=== PATIENT | male | born 1940 | race Caucasian/White ===

== ENCOUNTER 2018-07-01 02:45 | Inpatient (IN) | payer OTHER ==
[~2018-07-01] VITALS: Ht 185.4 cm; Wt 65.1 kg
[~2018-07-01 02:45] MED LIST: NIFE60TE PO; OMEP-113 PO; PARO20TA13 PO; POTA10TE31 PO; SIMV20TA6 PO
--- NOTE | 2018-07-01 02:45 | NUR ---
BIB EMS FOR ALOC AND AGITATION/AGGRESSION REPORTED BY FAMILY. PT IS A/O TO SELF AND PURPOSE. PT AMBULATED TO BED. COOPERATIVE, NON COMBATIVE BUT AGITATED. MARLA AT 54. OTHER VSS. ER MD AWARE. WILL CONTINUE TO MONITOR.
[2018-07-01 02:56] VITALS: BP 165/78
[2018-07-01] MEDS ORDERED: NACL 0.9% 500 ML IV SCH (03:00)
--- NOTE | 2018-07-01 03:05 | NUR ---
DR. PEREZ EVALUATING AT BEDSIDE.
[2018-07-01 03:35] LABS: BASOPHILS % (AUTO) 0.6 % (0.0-2.0); EOSINOPHILS # (AUTO) 0.2 K/uL (0-0.4); EOSINOPHILS % (AUTO) 3.4 % (0.0-4.0); HEMATOCRIT 41.8 % (36-52); HEMOGLOBIN 13.7 g/dL (12.0-18.0); LYMPHOCYTES # (AUTO) 1.7 K/uL (2.0-11.5); LYMPHOCYTES % (AUTO) 29.8 % (20.5-51.1); MEAN CORPUSCULAR HEMOGLOBIN 31 pg (27-31); MEAN CORPUSCULAR HGB CONC 33 g/dL (33-37); MEAN CORPUSCULAR VOLUME 92.7 fL (80-94); MONOCYTES # (AUTO) 0.4 K/uL (0.8-1.0); MONOCYTES % (AUTO) 7.3 % (1.7-9.3); NEUTROPHILS # (AUTO) 3.4 K/uL (1.8-7.7); NEUTROPHILS % (AUTO) 58.9 % (42.2-75.2); PLATELET COUNT (AUTO) 104 K/uL (140-450); RED CELL DISTRIBUTION WIDTH 14.4 % (11.6-13.7); WHITE BLOOD COUNT (AUTO) 5.8 K/uL (4.8-10.8)
[2018-07-01 03:36] LABS: APPEARANCE,URINE CLEAR (CLEAR); BILIRUBIN,URINE NEGATIVE (NEGATIVE); BLOOD, URINE NEGATIVE (NEGATIVE); COLOR,URINE YELLOW (YELLOW); LEUKOCYTE ESTERASE ,URINE NEGATIVE (NEGATIVE); NITRITE, URINE NEGATIVE (NEGATIVE); PH,URINE 7.5 (5.0-9.0); UGLUCOSE NEGATIVE (NEGATIVE)
--- NOTE | 2018-07-01 03:41 | NUR ---
EKG PERFORMED AT BEDSIDE
[2018-07-01 04:01] LABS: ALBUMIN 4.1 g/dL (3.4-5.0); ANION GAP 11.1 (8-16); ASPARTATE AMINOTRANSFERASE 28 U/L (15-37); CARBON DIOXIDE 31.2 mmol/L (21-32); CHLORIDE 105 mmol/L (98-107); CREATININE 1.1 mg/dL (0.7-1.3); GLUCOSE 108 mg/dL (74-106); POTASSIUM 3.3 mmol/L (3.5-5.1); SODIUM SERUM 144 mmol/L (136-145); TOTAL BILIRUBIN 0.5 mg/dL (0.0-1.0); UREA NITROGEN, BLOOD 24 mg/dL (7-18)
[2018-07-01] MEDS ORDERED: NACL 0.9% 2,000 ML IV ONE (04:35)
[2018-07-01] MEDS ORDERED: ASPIRIN 81 MG TAB.CHEW PO ONE (04:35)
[2018-07-01] MEDS ORDERED: LORazepam 2 MG/ML VIAL IVP ONE (05:20)
[2018-07-01] MEDS ORDERED: hePARIN / DEXT 5% PREMIX 250 ML IV SCH ×2 (05:45→08:00)
[2018-07-01] MEDS ORDERED: HYDROcodone/APAP 7.5/325 MG 1 TAB PO PRN (05:45)
[2018-07-01] MEDS ORDERED: NITROGLYCERIN 0.4 MG TAB SL PRN (05:45)
[2018-07-01] MEDS ORDERED: ONDANSETRON 4 MG/2 ML VIAL IM/IVP PRN (05:45)
[2018-07-01] MEDS ORDERED: DOCUSATE SODIUM 100 MG GELCAP PO PRN (05:45)
[2018-07-01] MEDS ORDERED: MORPHINE SULFATE 2 MG/ML SYR IVP PRN (05:45)
[2018-07-01] MEDS ORDERED: HEPARIN PER PHARMACY MC PRN (05:45)
[2018-07-01] MEDS ORDERED: ACETAMINOPHEN 325 MG TAB PO PRN (05:45)
--- NOTE | 2018-07-01 06:29 | NUR ---
Patient will be admitted to care of DR Hackett. Admited to TELE. Will go to room 117. Belongings list completed. Report to ANA Wadsworth.
--- NOTE | 2018-07-01 06:30 | NUR ---
RECEIVED REPORT FROM MANAGER ORACLE DATABASEAAN HERNANDEZ FOR CONTINUITY OF CARE. PT IS A/OX1, CONFUSED. ON ROOM AIR. 20G IV TO LEFT AC. GAIT IS IMPAIRED AND PT WAS CHANGED INTO YELLOW GOWN. BED ALARM ON.
[2018-07-01] MEDS ORDERED: POTASSIUM CHLORIDE 10 MEQ TABER PO SCH (07:00)
[2018-07-01] MEDS: NACL 0.9% 1,000 ML IV SCH ×2 (07:00→16:25)
--- NOTE | 2018-07-01 07:18 | NUR ---
ENDORSED PT TO DAY SHIFT ANA CAO FOR CONTINUITY OF CARE. PT STABLE.
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
[2018-07-01] MEDS ORDERED: HALOPERIDOL IM 5 MG/ML VIAL IM SCH ×3 (07:40→15:00)
[2018-07-01 07:51] LABS: CHOL/HDL RATIO 1.7 (1-4.5); MAGNESIUM 2.1 mg/dL (1.8-2.4); THYROID STIMULATING HORMONE 4.19 uIU/mL (0.34-3.74)
[2018-07-01 08:00] VITALS: BP 140/79
--- NOTE | 2018-07-01 08:28 | NUR ---
PATIENT HAS BEEN SCREENED AND CATEGORIZED HIGH NUTRITION RISK. PATIENT WILL BE SEEN WITHIN 1-2 DAYS OF ADMISSION. 07/01/18-07/02/[address]
[2018-07-01] MEDS: ASPIRIN 81 MG TAB.CHEW PO SCH (09:00)
[2018-07-01] MEDS: LISINOPRIL 5 MG TAB PO SCH (09:00)
[2018-07-01] MEDS ORDERED: METOPROLOL 25 MG TAB PO SCH (09:00)
[2018-07-01] MEDS ORDERED: ATORVASTATIN 20 MG TAB PO SCH (09:00)
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
--- NOTE | 2018-07-01 09:36 | NUR ---
PT STANDING UP AND PUSHING STAFF. UNABLE TO REORIENT AT THIS TIME. AWARE. HALDOL IM GIVEN. PT CONVINCED TO SIT BACK IN CHAIR. TELE MONITOR IN PLACE. WILL CONTINUE TO MONITOR.
--- NOTE | 2018-07-01 10:00 | NUR ---
PT BEING WHEELED AROUND UNIT. PT APPEARS CALM AT THIS TIME. PT'S IV SELF REMOVED TIP INTACT. MADE AWARE OF PATIENT'S HEART RATE IN THE 40'S AFIB. PT APPEARS ASYMPTOMATIC. WILL CONTINUE TO MONITOR.
--- NOTE | 2018-07-01 10:36 | NUR ---
Director Customer Note: I called patient's Rashida Craft and patient's son Ace Craft , neither answered, left messages. I told charge nurse Dinora to please call me if patient's family visits patient or calls nurses' station.
[2018-07-01] MEDS ORDERED: NIFE30TE8 PO (11:39)
[2018-07-01] MEDS ORDERED: CARV3.12 PO (11:39)
[2018-07-01] MEDS ORDERED: DONE5TAB6 PO (11:40)
[2018-07-01 12:00] VITALS: BP 125/65
[2018-07-01] MEDS ORDERED: DONEPEZIL 10 MG TAB PO SCH (12:00)
[2018-07-01] MEDS ORDERED: NIFEdipine 30 MG TABER PO SCH (12:00)
--- NOTE | 2018-07-01 12:03 | NUR ---
PT SITTING IN WHEELCHAIR WITH SITTER AT BEDSIDE. NO S/S OF ACUTE DISTRESS. PT DENIES PAIN. PT IS CALM. WILL CONTINUE TO MONITOR.
[2018-07-01] MEDS ORDERED: QUEtiapine FUMARATE 25 MG TAB PO SCH ×2 (12:45→21:00)
[2018-07-01] MEDS ORDERED: LOVENOX 1MG/KG Q12H SUBQ SCH (14:55)
--- NOTE | 2018-07-01 15:27 | NUR ---
07/01/18 RD INITIAL ASSESSMENT COMPLETED PLEASE REFER TO NUTRITION ASSESSMENT UNDER CARE ACTIVITY FOR ESTIMATED NUTRITIONAL NEEDS. 1. CONTINUE CARDIAC DIET TOLERATED 2. RD PROVIDED A CARDIAC NUTRITION EDUCATION HANDOUT FOR PATIENT AND FAMILY 3. RECOMMEND ENSURE QD 4. RD TO FOLLOW-UP 3-5 DAYS, MODERATE RISK AVIS KIRKPATRICK, RD
[2018-07-01 16:00] VITALS: BP 116/68
--- NOTE | 2018-07-01 16:44 | NUR ---
PT SLEEPING IN BED. NO S/S OF ACUTE DISTRESS. SITTER AT BEDSIDE. WILL CONTINUE TO MONITOR.
[2018-07-01] MEDS ORDERED: SIMVASTATIN 20 MG PO SCH (17:00)
--- NOTE | 2018-07-01 19:34 | NUR ---
ENDORSED PLAN OF CARE TO NIGHT RN.
--- NOTE | 2018-07-01 19:35 | NUR ---
RECEIVED REPORT FROM ANA CAO FOR CONTINUITY OF CARE. PT IS A/OX1, ON ROOM AIR. PT ABLE TO MAKE NEEDS KNOWN, AND ABLE TO FOLLOW COMMANDS, BUT IS SEVERELY CONFUSED. PT AMBULATES WITH VERY UNSTEADY GAIT, BU THE REFUSES TO SIT DOWN AND APPARENTLY GETS VIOLENT IF NOT ALLOWED TO WALK AROUND. SKIN IS INTACT. PT HAS A 22G IV TO LEFT AC, ASYMPTOMATIC AND INTACT. SBP SLIGHTLY ELEVATED BUT PT WILL GET SCHEDULED COREG SHORTLY, OTHER VITAL SIGNS WITHIN NORMAL LIMITS. PT STABLE, DENIES PAIN, NO SIGNS OF DISTRESS NOTED AT THIS TIME. PT POSITIONED FOR COMFORT. BED IN LOWEST POSITION, BED ALARM ON. WILL CONTINUE TO MONITOR.
--- NOTE | 2018-07-01 19:55 | NUR ---
PT INSISTED ON WALKING AROUND ALMOST STRAIGHT AWAY BUT AGREED TO ALLOW ME TO HOLD HIM TO HELP STEADY HIS GAIT.
[2018-07-01 20:00] VITALS: BP 161/77
[2018-07-01] MEDS: CARVEDILOL 3.125 MG TAB PO SCH (20:40)
[2018-07-01] MEDS: QUEtiapine FUMARATE 25 MG TAB PO SCH (20:40)
[2018-07-01] MEDS: ENOXAPARIN 80 MG/0.8 ML SYR SUBQ SCH (20:44)
--- NOTE | 2018-07-01 20:45 | NUR ---
ADMINISTERED SCHEDULED MEDICATIONS, PT TOLERATED WELL.
[2018-07-01] MEDS ORDERED: SIMVASTATIN 20 MG TAB PO SCH (21:00)
--- NOTE | 2018-07-01 21:00 | NUR ---
PT SAT FOR A MINUTE AFTER MEDICATION ADMINISTRATION, BUT GOT UP TO WALK ALMOST IMMEDIATELY. CURRENTLY TAKING PT AROUND UNIT IN WHEELCHAIR.
--- NOTE | 2018-07-01 21:58 | NUR ---
PT AGREED TO GO BACK IN ROOM AND LAY DOWN BECAUSE HE IS COLD AND TIRED. PT STATES HE'LL LIE DOWN FOR ONLY A BIT BECAUSE HE HAS SO MANY THINGS TO DO. REORIENTED PT AND TOLD HIM I'D STAY IN THE ROOM WITH HIM AND HE AGREED TO REST FOR A BIT.
--- NOTE | 2018-07-01 22:44 | NUR ---
PT IS RESTING NOW, STABLE, NO SIGNS OF DISTRESS NOTED AT THIS TIME. BED IN LOWEST POSITION, BED ALARM ON. WILL CONTINUE TO MONITOR.
[2018-07-02] VITALS: BP 155/78
--- NOTE | 2018-07-02 | NUR ---
VITAL SIGNS WITHIN NORMAL LIMITS. PT STABLE, DENIES PAIN, NO SIGNS OF DISTRESS NOTED AT THIS TIME. PT POSITIONED FOR COMFORT. BED IN LOWEST POSITION, BED ALARM ON. WILL CONTINUE TO MONITOR.
--- NOTE | 2018-07-02 02:15 | NUR ---
PT WOKE UP AND STARTED WALKING WITH VERY UNSTEADY GAIT. WHEN I TRIED TO HELP HIM HE STARTED SWINGING HIS ARMS AT ME, MICA MINER TRIED TO GET HIM TO SIT IN WHEELCHAIR AND HE REFUSED. SECURITY WAS CALLED WHEN HE STARTED GETTING AGITATED AND HE KEPT WALKING, ALMOST FALLING FORWARD SEVERAL TIMES, BUT I WAS BEHIND HIM TRYING TO HELP HIM STEADY HIS GAIT. HE REACHED THE END OF THE HALLWAY AND STOOD AGAINST THE WALL AND I NOTICED HIS LEFT EAR WAS BLEEDING. I LET DR SHARMA KNOW AND HE SAID HE WOULD GO CHECK HIS EAR. MEANWHILE CONSTRUCTION ACCOUNTANT JEYSON TRIED TO GET HIM TO SIT AND/OR GO BACK TO HIS ROOM. PT KEPT REFUSING AND THREATENED TO "GRAB A STICK AND CRACK OUR SKULLS OPEN IF WE TOUCHED HIM." HE SAID WE WERE "IDIOTS" BECAUSE WE KEPT TRYING TO CONVINCE HIM TO SIT AND HE DIDN'T WANT TO, WE TOLD HIM WE DIDN'T WANT HIM TO FALL AND HE STAYED QUIET. AFTER A FEW MINUTES PT STARTED GETTING OFF WALL AGAIN AND STARTED TRYING TO WALK HE SAID I'M GOING BACK TO BED. PT ALLOWED FOR ME TO HELP HIM GET TO HIS BED. ONCE IN BED DR SHARMA EXAMINED HIS EAR AND SAID IT LOOKED LIKE PT SCRATCHED AND THAT WAS WERE BLOOD WAS COMING FROM. CLEANED PT'S EAR, PT LAID DOWN AND I COVERED HIM WITH A BLANKET.
[2018-07-02] MEDS: NACL 0.9% 1,000 ML IV SCH (02:46)
[2018-07-02 04:00] VITALS: BP 151/74
--- NOTE | 2018-07-02 04:00 | NUR ---
BP SLIGHTLY ELEVATED BUT TRENDING DOWN. OTHER VITAL SIGNS WITHIN NORMAL LIMITS. PT STABLE, FLACC 0, NO SIGNS OF DISTRESS NOTED AT THIS TIME. PT POSITIONED FOR COMFORT. BED IN LOWEST POSITION, BED ALARM ON. WILL CONTINUE TO MONITOR.
[2018-07-02 06:23] LABS: CARBON DIOXIDE 30.8 mmol/L (21-32); CHLORIDE 109 mmol/L (98-107); GLUCOSE 90 mg/dL (74-106); SODIUM SERUM 146 mmol/L (136-145); UREA NITROGEN, BLOOD 17 mg/dL (7-18)
--- NOTE | 2018-07-02 06:33 | NUR ---
PT STABLE, FLACC 0, NO SIGNS OF DISTRESS NOTED AT THIS TIME. PT POSITIONED FOR COMFORT. BED IN LOWEST POSITION, BED ALARM ON. WILL CONTINUE TO MONITOR.
[2018-07-02 06:39] LABS: BASOPHILS % (AUTO) 0.5 % (0.0-2.0); EOSINOPHILS # (AUTO) 0.2 K/uL (0-0.4); EOSINOPHILS % (AUTO) 3.7 % (0.0-4.0); HEMATOCRIT 38.8 % (36-52); HEMOGLOBIN 12.8 g/dL (12.0-18.0); LYMPHOCYTES # (AUTO) 1.8 K/uL (2.0-11.5); LYMPHOCYTES % (AUTO) 31.1 % (20.5-51.1); MEAN CORPUSCULAR HEMOGLOBIN 30 pg (27-31); MEAN CORPUSCULAR HGB CONC 33 g/dL (33-37); MEAN CORPUSCULAR VOLUME 91.8 fL (80-94); MONOCYTES # (AUTO) 0.6 K/uL (0.8-1.0); MONOCYTES % (AUTO) 10.4 % (1.7-9.3); NEUTROPHILS # (AUTO) 3.1 K/uL (1.8-7.7); NEUTROPHILS % (AUTO) 54.3 % (42.2-75.2); PLATELET COUNT (AUTO) 97 K/uL (140-450); RED BLOOD CELL COUNT(AUTO) 4.23 MIL/uL (4.20-6.10); RED CELL DISTRIBUTION WIDTH 14.1 % (11.6-13.7); WHITE BLOOD COUNT (AUTO) 5.7 K/uL (4.8-10.8)
[2018-07-02 06:41] LABS: POTASSIUM 2.8 mmol/L (3.5-5.1)
[2018-07-02] MEDS ORDERED: POTASSIUM CHLORIDE 10 MEQ TABER PO SCH (07:00)
--- NOTE | 2018-07-02 07:20 | NUR ---
ENDORSED PT TO DAY SHIFT ANA PATEL AT BEDSIDE FOR CONTINUITY OF CARE. PT IN STABLE CONDITION.
--- NOTE | 2018-07-02 07:21 | NUR ---
RECEIVED BEDSIDE REPORT FROM COMPRESSOR STATION CHIEF ENGINEER NURSE. PATIENT SLEEPING AT THIS TIME. STATED PATIENT IS COMBATIVE, CONFUSED, AND FALL RISK. ON TELE MONITOR AND STANDARD PRECAUTIONS IN PLACE. L EAR SCAB, DOCTOR AWARE. PATIENT INCONTINENT. FALL RISK PROTOCOL IN PLACE. IV ON L AC 22 G, ASYMPTOMATIC, PATENT AND INTACT. BED IN LOW POSITION, CALL LIGHT WITHIN REACH, SIDE RAILS X2 UP. WILL CONTINUE TO MONITOR.
[2018-07-02 08:00] VITALS: BP 144/75
[2018-07-02] MEDS ORDERED: POTASSIUM CHLORIDE 40 MEQ, LIDOCAINE 1% 25 MG in NACL 0.9% 250 ML IV SCH (08:00)
[2018-07-02] MEDS ORDERED: NIFEdipine 30 MG TABER PO SCH (09:00)
[2018-07-02] MEDS: LISINOPRIL 5 MG TAB PO SCH (09:00)
[2018-07-02] MEDS: CARVEDILOL 3.125 MG TAB PO SCH (09:00)
[2018-07-02] MEDS: QUEtiapine FUMARATE 25 MG TAB PO SCH (09:00)
[2018-07-02] MEDS: ENOXAPARIN 80 MG/0.8 ML SYR SUBQ SCH (09:00)
[2018-07-02] MEDS: ASPIRIN 81 MG TAB.CHEW PO SCH (09:00)
[2018-07-02] MEDS ORDERED: DONEPEZIL 10 MG TAB PO SCH (09:00)
--- NOTE | 2018-07-02 09:19 | NUR ---
ADMINISTERED K RIDER FOR K 2.8. PATIENT TOLERATED WELL. WILL CONTINUE TO MONITOR.
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
--- NOTE | 2018-07-02 11:32 | NUR ---
CHANGED PATIENTS SOILED PADS. SECURITY AT BEDSIDE. PATIENT NOW BACK TO SLEEP. WILL CONTINUE TO MONITOR.
--- NOTE | 2018-07-02 11:34 | NUR ---
RECEIVED ORDER FOR SNF FOR P.T., [facility]EMENT[facility] UNIT. I CALLED [facility] AND SPOKE WITH KARINA AND SHE SAID THE ORDER SHOULD BE FAXED TO [facility]. [phone]. PHONE [phone]
[2018-07-02 12:00] VITALS: BP 151/84
--- NOTE | 2018-07-02 13:21 | NUR ---
PATIENT LAYING IN BED. NO DISTRESS NOTED, ON ROOM AIR. WILL CONTINUE TO MONITOR.
[2018-07-02] MEDS ORDERED: ASPI-1718 PO (13:55)
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
[2018-07-02 16:00] VITALS: BP 165/87
--- NOTE | 2018-07-02 16:33 | NUR ---
I CALLED [facility] AND SPOKE WITH RAMO AFTER HOURS PERSON. [phone]. SHE SAID THAT THE PATIENT WAS ACCEPTED AT [facility], BUT THEY ARE WAITING FOR AN FAM. RAMO SAID IF SHE GETS THE FAM SHE WILL SEND IT TO THE SNF AND WILL BE ABLE TO GET THE ROOM NUMBER. I GAVE HER THE PHONE NUMBER TO THE FLOOR TO CALL IF SHE GETS A BED. [facility] [phone], PHONE FAX [phone] I FAXED THE P.T. NOTES TO [facility], FAX [phone].
--- NOTE | 2018-07-02 17:00 | NUR ---
RECEIVED A CALL FROM DAMARIS REGARDING PATIENT ACCEPTED TO [facility] (LOCKED FACILITY) IN ROOM T11. GAVE ME THE NUMBER TO GIVE REPORT TO: [phone]. SHE SAID PICKUP TIME IS IN 90 MINUTES FROM [facility]. CHARGE NURSE AWARE.
--- NOTE | 2018-07-02 17:22 | NUR ---
REPORT GIVEN TO [facility] FROM [facility], WHICH IS A LOCKED FACILITY, PHONE NUMBER [phone]. PATIENT WILL BE GOING TO ROOM T11. ANSWERED ALL QUESTIONS AND CONCERNS. NURSE AWARE OF PICKUP TIME AROUND 6:30 PM TODAY BY [facility].
[2018-07-02 18:46] LABS: ANION GAP 3.6 (8-16); CARBON DIOXIDE 32.5 mmol/L (21-32); CHLORIDE 107 mmol/L (98-107); CREATININE 1.1 mg/dL (0.7-1.3); GLUCOSE 91 mg/dL (74-106); POTASSIUM 3.1 mmol/L (3.5-5.1); SODIUM SERUM 140 mmol/L (136-145); UREA NITROGEN, BLOOD 16 mg/dL (7-18)
--- NOTE | 2018-07-02 18:55 | NUR ---
GOT CALL FROM AKILAH PAULINO [facility]. STATED PATIENT WILL BE PICKED UP IN 60 MINUTES. WILL ENDORSE TO TEST FIXTURE DESIGNER NURSE.
--- NOTE | 2018-07-02 19:25 | NUR ---
GAVE REPORT TO [facility]. PATIENT UNABLE TO SIGN PAPERWORK. GAVE FACE SHEET AND COPY OF PATIENTS DISCHARGE PAPERS IN FOLDER. REMOVED WRIST BAND AND IV. IV TIP INTACT. ANSWERED ALL QUESTIONS AND CONCERNS. PATIENT REFUSED PNA AND FLU VACCINE. PATIENT IN STABLE CONDITION.
[2018-07-02] MEDS ORDERED: QUEtiapine FUMARATE 25 MG TAB PO SCH (21:00)
== END 2018-07-02 19:25 | DRG 281 ==
LOC: MED 02:45 → MTU 05:44
PROVIDERS: ADMIT General Practice; ATTEND General Practice
DX: I21.A1 Myocardial infarction type 2 (principal); E87.2 Acidosis; F02.81 Dementia in other diseases classified elsewhere, unspecified severity, with behavioral disturbance; I42.9 Cardiomyopathy, unspecified; G30.9 Alzheimer's disease, unspecified; F29 Unspecified psychosis not due to a substance or known physiological condition; J45.909 Unspecified asthma, uncomplicated; I10 Essential (primary) hypertension; G89.29 Other chronic pain; I25.10 Atherosclerotic heart disease of native coronary artery without angina pectoris; E87.6 Hypokalemia; E02 Subclinical iodine-deficiency hypothyroidism; E86.0 Dehydration
CPT/HCPCS: 36415; 71045; 80048; 80053; 81003; 82150; 83036; 83605; 83690; 83735; 83880; 84100; 84439; 84443; 84484; 85025; 85610; 85730; 87040; 87086; 93005; 96361; 96374; 97116; 99285; J1630; J1650; J2001; J2060; J2270; J3480; J7030; Q0092

== ENCOUNTER 2018-08-14 14:23 | Inpatient (IN) | payer OTHER ==
[~2018-08-14] VITALS: Ht 188 cm; Wt 68.0 kg
[~2018-08-14 14:23] MED LIST changes: +ASPI-1718 PO; +CARV3.12 PO; +DONE5TAB6 PO; +NIFE30TE8 PO; -NIFE60TE PO; -OMEP-113 PO; -PARO20TA13 PO; -POTA10TE31 PO
--- NOTE | 2018-08-14 14:23 | NUR ---
Patient BIBA ACLS, transferred to bed 10. RN evaluating patient at bedside.
[2018-08-14 14:25] VITALS: BP 159/77
--- NOTE | 2018-08-14 14:35 | NUR ---
PT BIB [facility] TO ER BED 10
--- NOTE | 2018-08-14 14:57 | NUR ---
BIBA WITH C/O FALL AT HOME, PER EMS FOUND ON THE FLOOR BY PT'S FAMILY MEMBERS, AMS THEN USUAL, DENIES PAIN, OR ANY INJURY. MEDHX: ALZHEIMER'S, HTN, CARDIAC DISEASE.
[2018-08-14 15:09] LABS: BASOPHILS % (AUTO) 0.3 % (0.0-2.0); EOSINOPHILS # (AUTO) 0.1 K/uL (0-0.4); EOSINOPHILS % (AUTO) 0.9 % (0.0-4.0); HEMATOCRIT 38.4 % (36-52); HEMOGLOBIN 12.9 g/dL (12.0-18.0); LYMPHOCYTES # (AUTO) 1.7 K/uL (2.0-11.5); LYMPHOCYTES % (AUTO) 20.7 % (20.5-51.1); MEAN CORPUSCULAR HEMOGLOBIN 30 pg (27-31); MEAN CORPUSCULAR HGB CONC 34 g/dL (33-37); MEAN CORPUSCULAR VOLUME 90.8 fL (80-94); MONOCYTES # (AUTO) 0.9 K/uL (0.8-1.0); MONOCYTES % (AUTO) 10.8 % (1.7-9.3); NEUTROPHILS # (AUTO) 5.6 K/uL (1.8-7.7); NEUTROPHILS % (AUTO) 67.3 % (42.2-75.2); PLATELET COUNT (AUTO) 142 K/uL (140-450); RED BLOOD CELL COUNT(AUTO) 4.23 MIL/uL (4.20-6.10); RED CELL DISTRIBUTION WIDTH 13.9 % (11.6-13.7); WHITE BLOOD COUNT (AUTO) 8.4 K/uL (4.8-10.8)
[2018-08-14 15:19] LABS: ALBUMIN 3.2 g/dL (3.4-5.0); ANION GAP 10.8 (8-16); ASPARTATE AMINOTRANSFERASE 25 U/L (15-37); CARBON DIOXIDE 30.4 mmol/L (21-32); CHLORIDE 102 mmol/L (98-107); CREATININE 1.4 mg/dL (0.7-1.3); GLUCOSE 105 mg/dL (74-106); POTASSIUM 3.2 mmol/L (3.5-5.1); SODIUM SERUM 140 mmol/L (136-145); TOTAL BILIRUBIN 1.3 mg/dL (0.0-1.0); UREA NITROGEN, BLOOD 35 mg/dL (7-18)
--- NOTE | 2018-08-14 15:32 | NUR ---
XRAY AT BEDSIDE
--- NOTE | 2018-08-14 15:51 | NUR ---
# 14 FR Urinary catheter inserted utilizing sterile technique. Immediate return of 150 ml DARK URINE urine noted. Urine sample collected and sent to lab. Pt tolerated procedure WELL.
--- NOTE | 2018-08-14 15:53 | NUR ---
PT GOING TO RADIOLOGY AT THIS TIME
[2018-08-14 16:17] LABS: APPEARANCE,URINE CLEAR (CLEAR); BILIRUBIN,URINE NEGATIVE (NEGATIVE); BLOOD, URINE NEGATIVE (NEGATIVE); COLOR,URINE YELLOW (YELLOW); LEUKOCYTE ESTERASE ,URINE NEGATIVE (NEGATIVE); NITRITE, URINE NEGATIVE (NEGATIVE); UGLUCOSE NEGATIVE (NEGATIVE)
--- NOTE | 2018-08-14 17:06 | NUR ---
PT TOOK STOOD UP AND URINATED ON FLOOR. PT WAS PUT BACK IN BED AND RECONNECTED TO MONITOR. PT SON IS NOW AT BEDSIDE AND CURTAINS ARE OPEN TO KEEP AN EYE ON PT. PT AAOX2, COOPERATIVE, DENIES PAIN AT THIS TIME. VSS
[2018-08-14] MEDS ORDERED: LACTATED RINGERS 1,000 ML IV ONE (17:30)
--- NOTE | 2018-08-14 18:26 | NUR ---
PT PULLED OUT IV, LR STOPPED, CATHETER WAS INTACT, BLEEDING STOPPED WITH 2X2 GAUZE AND TAPE.
[2018-08-14 18:30] LABS: ACETONE, SERUM NEGATIVE (NEGATIVE)
[2018-08-14 18:40] LABS: MAGNESIUM 2.2 mg/dL (1.8-2.4)
--- NOTE | 2018-08-14 19:00 | NUR ---
PT PULLED OUT IV. LR STOPPED. BLEEDING STOPPED WITH GAUZE AND TAPE.
--- NOTE | 2018-08-14 19:10 | NUR ---
ASSUMED CARE OF PATIENT. PT FOUND LYING IN [facility] BED. PT DOES NOT HAVE IV ACCESS AT THIS TIME. PT IS PENDING TRANSFER TO [facility].
--- NOTE | 2018-08-14 19:40 | NUR ---
PT NOTED TRYING TO GET OUT OF BED. WAS ASSISTED WITH SECOND RIDE FARE COLLECTOR TO ASSIST PATIENT BACK INTO BED. PT PLACED IN POSITION OF COMFORT.
--- NOTE | 2018-08-14 20:56 | NUR ---
FOOD TRAY ORDERED FOR PATIENT. PT EATING, TOLERATING WELL.
[2018-08-14] MEDS: NACL 0.9% 1,000 ML IV SCH (21:11)
[2018-08-14] MEDS ORDERED: ACETAMINOPHEN 325 MG TAB PO PRN (21:15)
[2018-08-14] MEDS ORDERED: DOCUSATE SODIUM 100 MG GELCAP PO PRN (21:15)
[2018-08-14] MEDS ORDERED: ONDANSETRON 4 MG/2 ML VIAL IM/IVP PRN (21:15)
[2018-08-14] MEDS ORDERED: HYDROcodone/APAP 5/325 MG 1 TAB TAB PO PRN (21:15)
[2018-08-14 21:40] VITALS: BP 179/84
--- NOTE | 2018-08-14 21:40 | NUR ---
PATIENT ARRIVED TO UNIT VIA GURNEY, PATIENT AAOX 1 TO PERSON, UNABLE TO MAKE NEED KNOWN, TRYING TO GET OUT OF BED, IV IN LEFT AC SL, PATIENT TRYING TO PULL OUT IV, WRAPPED AND SECURED, NOTED SACRAL AND LEFT KNEE REDNESS, LEFT TOE BLEEDING, BP 179/80 HR 64. WILL NOTIFY FOR ORDERS. MRSA SCREEN COLLECTED AND SENT TO LAB, ASKED DR PATEL IF NEED NS AND HEPARIN DRIP AT SAME TIME AND NEED TO START NEW IV? STATED OKAY TO HOLD NS FOR NOW AND GIVE HEPARIN. BED ALARM ON, WILL PROVIDE FREQ CHECKS
[2018-08-14 21:42] LABS: BARBITURATE, URINE NEG. ng/ml (NEG <=200); BENZODIAZEPINE, URINE NEG. ng/mL (NEG <=200); CANNABINOID, URINE NEG. ng/mL (NEG <=50); COCAINE, URINE NEG. ng/mL (NEG <=300); OPIATE, URINE NEG. ng/mL (NEG <=2000); PHENCYCLIDINE SCREEN,URINE NEG. ng/mL (NEG <=25)
--- NOTE | 2018-08-14 21:43 | NUR ---
Admited to Tele. Will go to room 110-A. Belongings list completed. Report to Summer RN.
[2018-08-14 21:45] LABS: PROTHROMBIN TIME 11.6 secs (10.8-13.4)
[2018-08-14 21:54] LABS: CHOL/HDL RATIO 3.2 (1-4.5); FREE T4 (FREE THYROXINE) 1.39 ng/dL (0.76-1.46); PHOSPHORUS 3.4 mg/dL (2.5-4.9); THYROID STIMULATING HORMONE 1.44 uIU/mL (0.34-3.74)
--- NOTE | 2018-08-14 22:00 | NUR ---
WILL START WITH SITTER NEEDED FOR SAFETY PRECAUTIONS.
--- NOTE | 2018-08-14 22:20 | NUR ---
PATIENT UNABLE TO ANSWER ADMISSION QUESTIONS EVEN WITH NETWORK SUPPORT SPECIALIST. WILL CALL FAMILY FOR ADMISSION DATA.
[2018-08-14] MEDS ORDERED: hePARIN / DEXT 5% PREMIX 250 ML IV SCH (22:30)
--- NOTE | 2018-08-14 22:30 | NUR ---
NOTIFIED DR PATEL BP 179/80 HR 64, WOUND ON LEFT TOE, REDNESS ON LEFT KNEE AND SACRAL AREA.
--- NOTE | 2018-08-14 22:47 | NUR ---
CALLED ISRAEL ASKED IF SHE CAN BRING MEDICATIONS FOR MED RECONCILIATION. SHE SAID OKAY, DR PATEL AWARE.
[2018-08-14] MEDS ORDERED: NITROGLYCERIN 0.4 MG TAB SL PRN (22:55)
[2018-08-14] MEDS ORDERED: hydrALAZINE 20 MG/ML VIAL IVP PRN (23:00)
[2018-08-15] VITALS: BP 145/75
[2018-08-15] MEDS ORDERED: hePARIN / DEXT 5% PREMIX 250 ML IV SCH
[2018-08-15] MEDS ORDERED: POTASSIUM CHLORIDE 10 MEQ TABER PO SCH
--- NOTE | 2018-08-15 00:43 | NUR ---
STARTED HEPARIN DRIP ACCORDING TO MD ORDER
--- NOTE | 2018-08-15 02:44 | NUR ---
CALL FROM LAB TROPONIN .750 TRENDING DOWN PATIENT ON HEPARIN DRIP
--- NOTE | 2018-08-15 03:00 | NUR ---
TOE CLEANSED WITH NS, DID NOT WANT BANDAGE ON, LEFT COTTON BROKER.
--- NOTE | 2018-08-15 03:40 | NUR ---
STARTED IV IN RIGHT HAND 22 G FOR IV ZOSYN
[2018-08-15] MEDS: PIPER/TAZO 3.375GM/D5W PREMIX 50 ML IV SCH ×2 (03:59→12:52)
[2018-08-15] MEDS: NACL 0.9% 1,000 ML IV SCH (03:59)
[2018-08-15 04:00] VITALS: BP 148/71
[2018-08-15] MEDS ORDERED: PIPERACILLIN/TAZOBACTAM 3.375 GM VIAL IV ONE (04:01)
--- NOTE | 2018-08-15 04:10 | NUR ---
DUE ZOSYN GIVEN
--- NOTE | 2018-08-15 06:17 | NUR ---
RESTING IN BED, STILL 1:1 SITTER
--- NOTE | 2018-08-15 06:50 | NUR ---
CALLED DR FOR DIET ORDER
--- NOTE | 2018-08-15 07:25 | NUR ---
ENDORSED PATIENT TO DAY SHIFT NURSE PATIENT STABLE
--- NOTE | 2018-08-15 07:26 | NUR ---
GOT BEDSIDE REPORT FROM ANA CHARLES. PATIENT ON TELE MONITOR AND STANDARD PRECAUTIONS IN PLACE. PATIENT AAOX1 TO PERSON AND ON ROOM AIR, NO DISTRESS NOTED. R AC 20 G, INFUSING HEPARIN, IV ASYMPTOMATIC PATENT AND INTACT. R H 22 G INFUSING NS AT 100, IV ASYMPTOMATIC PATENT AND INTACT. SITTER AT BEDSIDE. FALL RISK PROTOCOL IN PLACE. L TOE WOUND FIRST MATE, L KNEE BRUISE, AND SACRAL BRUISE. BED IN LOW POSITION, CALL LIGHT WITHIN REACH, SIDE RAILS X2 UP
[2018-08-15 08:00] VITALS: BP 120/97
[2018-08-15] MEDS ORDERED: HEPARIN PER PHARMACY MC PRN (08:20)
--- NOTE | 2018-08-15 08:41 | NUR ---
ADMINISTERED SCHEDULED MEDS. PATIENT TOLERATED WELL. PATIENT REFUSED NIFEDIPINE
[2018-08-15 08:43] LABS: ANION GAP 13.7 (8-16); CARBON DIOXIDE 27.4 mmol/L (21-32); CHLORIDE 102 mmol/L (98-107); GLUCOSE 102 mg/dL (74-106); POTASSIUM 3.1 mmol/L (3.5-5.1); SODIUM SERUM 140 mmol/L (136-145); UREA NITROGEN, BLOOD 26 mg/dL (7-18)
[2018-08-15 08:44] LABS: CREATININE 1.3 mg/dL (0.7-1.3)
[2018-08-15 08:47] LABS: PHOSPHORUS 3.7 mg/dL (2.5-4.9)
[2018-08-15 08:54] LABS: BASOPHILS % (AUTO) 0.4 % (0.0-2.0); EOSINOPHILS % (AUTO) 0.5 % (0.0-4.0); HEMATOCRIT 39.1 % (36-52); HEMOGLOBIN 13.4 g/dL (12.0-18.0); LYMPHOCYTES # (AUTO) 1.2 K/uL (2.0-11.5); LYMPHOCYTES % (AUTO) 17.2 % (20.5-51.1); MEAN CORPUSCULAR HEMOGLOBIN 31 pg (27-31); MEAN CORPUSCULAR HGB CONC 34 g/dL (33-37); MEAN CORPUSCULAR VOLUME 90.9 fL (80-94); MONOCYTES # (AUTO) 0.9 K/uL (0.8-1.0); MONOCYTES % (AUTO) 13.6 % (1.7-9.3); NEUTROPHILS # (AUTO) 4.8 K/uL (1.8-7.7); NEUTROPHILS % (AUTO) 68.3 % (42.2-75.2); PLATELET COUNT (AUTO) 158 K/uL (140-450); RED BLOOD CELL COUNT(AUTO) 4.31 MIL/uL (4.20-6.10); RED CELL DISTRIBUTION WIDTH 13.6 % (11.6-13.7)
[2018-08-15] MEDS ORDERED: ATORVASTATIN 20 MG TAB PO SCH ×2 (09:00)
[2018-08-15] MEDS ORDERED: DONEPEZIL 10 MG TAB PO SCH (09:00)
[2018-08-15] MEDS ORDERED: NIFEdipine 30 MG TABER PO SCH (09:00)
[2018-08-15] MEDS ORDERED: ASPIRIN 81 MG TAB.CHEW PO SCH ×2 (09:00)
[2018-08-15] MEDS ORDERED: LACTOBACILLUS RHAMNOSUS GG 1 EACH CAP PO SCH (09:00)
[2018-08-15] MEDS ORDERED: ASPIRIN 325 MG TABEC PO SCH (09:00)
[2018-08-15 09:10] LABS: MAGNESIUM 1.9 mg/dL (1.8-2.4)
--- NOTE | 2018-08-15 11:14 | NUR ---
PATIENT WATCHING TV, ON ROOM AIR, NO DISTRESS NOTED. WILL CONTINUE TO MONITOR
[2018-08-15 12:00] VITALS: BP 139/92
--- NOTE | 2018-08-15 12:53 | NUR ---
ADMINISTERED SCHEDULED MEDS. PATIENT TOLERATED WELL. SON AT BEDSIDE AND ALEXYS MOYA FEEDING PATIENT LUNCH
[2018-08-15] MEDS ORDERED: POTASSIUM CHLORIDE 40 MEQ, LIDOCAINE MPF 1% - 5 mL VIAL 25 MG in NACL 0.9% 250 ML IV SCH (14:00)
--- NOTE | 2018-08-15 14:11 | NUR ---
CLEANED SOILED PADS WITH ALEXYS MOYA
[2018-08-15 16:00] VITALS: BP 140/81
--- NOTE | 2018-08-15 16:56 | NUR ---
TELEPHONE REPORT GIVEN TO ANA KELLY FROM [facility]. PATIENT WILL BE UNDER DR. KHALIL. PHONE # [phone] FOR REPORT. ANSWERED ALL QUESTIONS AND CONCERNS
[2018-08-15] MEDS ORDERED: LACT10CA PO (17:03)
[2018-08-15] MEDS ORDERED: PIPE1SOL IV (17:03)
--- NOTE | 2018-08-15 17:42 | NUR ---
DISCHARGE INSTRUCTIONS GIVEN TO PATIENT. PATIENT IS CONFUSED AND FALL RISK. KEPT BOTH IV'S ON R AC 20 G AND R H 22 G, BOTH PATENT, CLEAN AND INTACT. PATIENT REFUSED PNA AND FLU VACCINES. PICTURES TAKEN OF L FOOT, SACRAL REDNESS, AND L KNEE BRUISE. ALL BELONGINGS SENT HOME WITH PATIENT. DISCHARGE INSTRUCTIONS GIVEN TO [facility]. ANSWERED ALL QUESTIONS AND CONCERNS Addendum: 08/15/18 at 1753 by Yohana Rouse RN CALLED CHRISTA GREEN, SON, PHONE #[phone] 3 TIMES AND LEFT A MESSAGE REGARDING HOME MEDS WITH [facility] AND TO PLEASE PICK THEM UP TOMORROW. [facility] WAS CLOSED WHEN [facility] PICKED UP PATIENT AND I DID NOT GET THE CHANCE TO GIVE MEDS TO PATIENT FOR TRANSFER TO [place]
== END 2018-08-15 17:45 | disposition short-term general hospital (02) | DRG 280 ==
LOC: MED 14:23 → MTU 21:11
PROVIDERS: ADMIT General Practice; ATTEND General Practice
DX: I21.4 Non-ST elevation (NSTEMI) myocardial infarction (principal); J69.0 Pneumonitis due to inhalation of food and vomit; N17.0 Acute kidney failure with tubular necrosis; I16.1 Hypertensive emergency; E44.0 Moderate protein-calorie malnutrition; Z68.1 Body mass index [BMI] 19.9 or less, adult; I10 Essential (primary) hypertension; G30.9 Alzheimer's disease, unspecified; F02.80 Dementia in other diseases classified elsewhere, unspecified severity, without behavioral disturbance, psychotic disturbance, mood disturbance, and anxiety; I25.10 Atherosclerotic heart disease of native coronary artery without angina pectoris; I25.2 Old myocardial infarction; E87.6 Hypokalemia; I16.0 Hypertensive urgency
CPT/HCPCS: 36415; 70450; 71045; 80048; 80053; 80305; 81003; 82009; 82150; 82550; 83036; 83690; 83735; 83880; 84100; 84439; 84443; 84484; 85025; 85610; 85730; 87081; 93005; 93880; 96360; 99285; C1758; J0360; J1644; J2001; J2543; J3480; J7030; J7060; Q0092